=== PATIENT | male | born 1950 | race Caucasian/White ===

== ENCOUNTER 2023-11-23 14:45 | Emergency (ER) | payer OTHER, SELFPAY ==
[2023-11-23 14:49] VITALS: BP 155/82; PULSE 79; RESP 16; TEMP 36.8; O2SAT 99; BMI 25.0
--- NOTE | 2023-11-23 14:55 | DI.RAD.S_ITS ---
PROCEDURE: XR CHEST 1V INDICATIONS: chest pain TECHNIQUE: One view of the chest was acquired. COMPARISON: [facility], CR, XR CHEST 2 VIEWS, 03/07/2022, 14:49. FINDINGS: Surgical changes and devices: None. Lungs and pleura: Lungs are clear. No pleural effusions or pneumothorax. Mediastinum: Mediastinal contours appear normal. Heart size is normal. Bones and chest wall: No suspicious bony lesions. Levocurvature of the thoracic spine. Overlying soft tissues appear unremarkable. IMPRESSION: No acute cardiopulmonary abnormality is seen. Dictated by: Jaron Patiño M.D. on 11/23/2023 at 16:18 Approved by: Jaron Patiño M.D. on 11/23/2023 at 16:19
[2023-11-23 15:27] LABS: Add Manual Diff / Slide Review NO; Basophils Absolute Auto 0 /uL (0-100); Basophils Percent Auto 0.3 % (0-2); Eosinophils Absolute Auto 100 /uL (0-450); Hematocrit 43.5 % (41-53); Hemoglobin 14.9 g/dL (13.5-17.5); Lymphocytes Absolute Auto 1800 /uL (1100-4500); Lymphocytes Percent Auto 24.8 % (25-40); Mean Corpuscular HGB Conc 34.3 % (30-36); Mean Corpuscular Hemoglobin 33.4 PG (26-34); Mean Corpuscular Volume 97.5 fL (80-100); Monocytes Absolute Auto 1100 /uL (0-900); Monocytes Percent Auto 15.2 % (3-14); Neutrophils Absolute Auto 4200 /uL (1500-7000); Neutrophils Percent Auto 58.7 % (50-75); Platelet Count 231 X10^3/uL (150-400); Red Blood Cell Count 4.46 X10^6/uL (4.5-5.9); White Blood Cell Count 7.1 X10^3/uL (4.5-11.0)
[2023-11-23 15:44] LABS: INR 0.9 (0.9-1.3); Prothrombin Time 10.5 SECONDS (9.4-12.5)
[2023-11-23 15:46] LABS: PTT Partial Thromboplastin Tim 38 SECONDS (25.1-36.5)
[2023-11-23] MEDS: ASPIRIN 81 MG CHEW TAB 324 MG PO (15:51)
[2023-11-23 15:53] LABS: Alanine Aminotransferase 38 IU/L (<50); Albumin 4.6 g/dL (3.5-5.0); Albumin Globulin Ratio 1.8 (1.0-2.8); Alkaline Phosphatase 62 U/L (38-126); Aspartate Aminotransferase 47 IU/L (17-59); BUN Creatinine Ratio 16.7 (6-22); Bilirubin Total 0.6 mg/dL (0.2-1.3); Blood Urea Nitrogen 14 mg/dL (9-20); Calcium 9.7 mg/dL (8.4-10.2); Carbon Dioxide 29 mmol/L (22-32); Chloride 105 mmol/L (98-107); Creatine Kinase 354 U/L (55-170); Estimated Glomerular Filt Rate > 60 mL/min (>60); Globulin 2.6 g/dL (1.7-4.1); Glucose 121 mg/dL (80-110); HEMOLYSIS 25 (0-50); Lipase 503 U/L (23-300); Magnesium 2.1 mg/dL (1.6-2.3); Potassium 3.8 mmol/L (3.4-5.1); Sodium 138 mmol/L (137-145); Total Protein 7.2 g/dL (6.3-8.2)
[2023-11-23 16:04] LABS: Troponin I < 0.012 ng/mL (0.01-0.034)
[2023-11-23 17:30] VITALS: BP 135/72; PULSE 66; RESP 14; O2SAT 99
--- NOTE | 2023-11-23 18:09 | ED.CHESTPAIN ---
HPI - Chest Pain General Chief Complaint: Chest Pain Stated Complaint: intermittent chest pain Time Seen by Provider: 11/23/23 18:08 Source: patient and family Mode of arrival: Ambulatory History of Present Illness HPI narrative: 73-year-old gentleman with a history of hyperlipidemia, father who did of cardiovascular disease 57 with multiple lifestyle risk factors that is the patient has actively avoided. Hiren notes that he will regularly hike for 4-5 hours up and down mountains without any difficulties today. Today he and his or hiking up [place], relatively easy hike for them when he developed acute right-sided chest pain that he describes it as sharp and stabbing lasting a few seconds and recurring every few minutes. He was not short of breath, diaphoretic, dizzy or complaining of palpitations. Deep breathing and positioning did not make any difference to the pain. He and his made it to the end of their hike and while they were sitting and having some coffee continued to have these sharp stabbing intermittent episodes of pain in the right chest for approximately 45 minutes. Recently has not had fevers, cough, chills, lower extremity edema, nausea, vomiting, diarrhea. Related Data Allergies Allergy/AdvReac Type Severity Reaction Status Date / Time No Known Drug Allergies Allergy Verified 11/23/23 14:54 Review of Systems Review of Systems Narrative: Pertinent positive and negative findings as per HPI Patient History Medical History (Updated 11/23/23 @ 19:01 by Vida Calle MD) Hyperlipidemia Social History Smoking Status: Never smoker Smoking Status: Never smoker Substance Use Type: does not use Exam Initial Vital Signs Initial Vital Signs: Vital Signs Temperature 98.3 F 11/23/23 14:49 Pulse Rate 79 11/23/23 14:49 Respiratory Rate 16 11/23/23 14:49 Blood Pressure 155/82 H 11/23/23 14:49 Pulse Oximetry 99 11/23/23 14:49 Oxygen Delivery Method Room Air 11/23/23 14:49 General: Healthy appearing, in no acute distress. Able to give a complete and coherent history. Well-nourished well-developed HEENT: Moist mucous membranes, normal sclera with reactive pupils, Neck: No JVD, supple Respiratory: Lungs are clear to auscultation, no wheezing no rales no rhonchi. Full and symmetrical air movement Cardiac: Regular rate and rhythm no murmurs no bruits Abdomen: Soft, nontender, good bowel tones, no flank pain Skin: Warm and dry, no rashes Neurologic: Grossly neurologically intact with no obvious asymmetries or abnormalities Extremities: No trauma, well perfused Psych: Cooperative, appropriate insight and affect Course Orders Ordered: ED Orders 11/23/23 14:55 XR chest 1V Stat EKG-12 Lead Stat 11/23/23 15:15 Complete Blood Count AUTO DIFF Stat Comprehensive Metabolic Panel Stat Lipase Stat Magnesium Stat PTT Partial Thromboplastin Paddy Stat Prothrombin Time INR Stat Troponin & CK Cardiac Panel Stat 11/23/23 18:03 Trop I [Troponin I] Stat Discontinued Medications Aspirin (Aspirin 81 Mg Chew Tab) 324 mg PO NOW ONE Stop: 11/23/23 14:56 Last Admin: 11/23/23 15:51 Dose: 324 mg Documented By: SB Vital Signs Vital signs: Vital Signs - 8 hr 11/23/23 14:49 11/23/23 17:30 Temperature 98.3 F Pulse Rate 79 66 Respiratory Rate 16 14 Blood Pressure 155/82 H 135/72 Pulse Oximetry 99 99 Oxygen Delivery Method Room Air Room Air MDM - Chest Pain Lab Data 11/23/23 15:15 11/23/23 15:15 Labs: Lab Results 11/23/23 Range/Units 15:15 WBC 7.1 (4.5-11.0) X10^3/uL RBC 4.46 L (4.5-5.9) X10^6/uL Hgb 14.9 (13.5-17.5) g/dL Hct 43.5 (41-53) % MCV 97.5 (80-100) fL MCH 33.4 (26-34) PG MCHC 34.3 (30-36) % RDW 13.0 (11.6-14.8) % Plt Count 231 (150-400) X10^3/uL Neut % (Auto) 58.7 (50-75) % Lymph % (Auto) 24.8 L (25-40) % [place] % (Auto) 15.2 H (3-14) % Eos % (Auto) 1.0 L (2-4) % Baso % (Auto) 0.3 (0-2) % Neut # (Auto) 4200 (2501-2547) /uL Lymph # (Auto) 1800 (1575-0370) /uL [place]ley # (Auto) 1100 H (0-900) /uL Eos # (Auto) 100 (0-450) /uL Baso # (Auto) 0 (0-100) /uL PT 10.5 (9.4-12.5) SECONDS INR 0.9 (0.9-1.3) APTT 38 H (25.1-36.5) SECONDS Sodium 138 (137-145) mmol/L Potassium 3.8 (3.4-5.1) mmol/L Chloride 105 (98-107) mmol/L Carbon Dioxide 29 (22-32) mmol/L BUN 14 (9-20) mg/dL Creatinine 0.84 (0.66-1.25) mg/dL Estimated GFR > 60 (>60) mL/min BUN/Creatinine Ratio 16.7 (6-22) Glucose 121 H (80-110) mg/dL Calcium 9.7 (8.4-10.2) mg/dL Magnesium 2.1 (1.6-2.3) mg/dL Total Bilirubin 0.6 (0.2-1.3) mg/dL AST 47 (17-59) IU/L ALT 38 (<50) IU/L Alkaline Phosphatase 62 (38-126) U/L Total Creatine Kinase 354 H (55-170) U/L Troponin I < 0.012 (0.01-0.034) ng/mL Total Protein 7.2 (6.3-8.2) g/dL Albumin 4.6 (3.5-5.0) g/dL Globulin 2.6 (1.7-4.1) g/dL Albumin/Globulin Ratio 1.8 (1.0-2.8) Lipase 503 H (23-300) U/L MDM Narrative Medical decision making narrative: CC: Right-sided intermittent episodes of chest pain with hiking Complicating co-morbidities: Mild hyperlipidemia Data collected from: patient Social determinants of health that may influence the patients condition: Very active patient, regularly hikes 4-5 hours a day a pills Differential considered: Pleurisy, muscle spasm, acute coronary syndrome Exam documented above, pertinent findings include: Exam is entirely benign, there is no reproducible chest pain Lab Test results independently reviewed as above. Pertinent findings: CBC is unremarkable Chemistries are reassuring 1st and 2nd troponin are within normal limits Independently reviewed EKG: Sinus rhythm at a rate of 78, occasional PVC, LVH with developing bundle branch block Imaging studies independently reviewed: Chest x-ray is unremarkable Treatments: Patient was given aspirin Discussion: 73-year-old gentleman with minimal medical issues experiencing some between 45 minutes an hour and a half of right-sided sharp stabbing intermittent chest pain that was not associated with diaphoresis did not change at rest or with position or deep breathing. Has not entirely resolved with his emergency room visit. Repeat troponin is unremarkable, his heart score is 3 which gives him a low risk 1-1.7% risk of Mace in the next 30 days. He is numbers reviewed with him. This point I think he is safe for discharge home with info most likely explanation for his pain is more musculoskeletal than anything that would require additional workup, imaging or hospitalization. We will ask him to follow up with his primary care physician and I believe a stress test of some type as an outpatient for cardiac risk stratification would be prudent. Questions are answered he is safe for discharge Discharge Plan Departure Patient Disposition: Home Clinical Impression: Atypical chest pain Instructions: DI for Atypical Chest Pain Activity Restrictions/Additional Instructions: Thank you for coming in today, I believe an emergency room visit was entirely appropriate with your symptoms Fortunately, your workup is very benign. I am seeing no evidence of infection, collapsed lungs, abnormalities on chest x-ray, no suggestion of acute heart attack or heart attack like syndrome. We may never white figure out what it is but the most likely explanation is more consistent with a musculoskeletal issue than something that would require hospitalization or further workup tonight I do believe that reviewing your symptoms with your primary care doctor would be appropriate. Undergoing an outpatient cardiac stress test for further risk stratification would be a reasonable thing to consider. If you find that you are getting worse or develop any new symptoms, please feel free to return to the emergency department for further evaluation. Referrals: William Rao ARNP [Primary Care Provider] - Stand Alone Forms: Patient Portal/API
[2023-11-23 18:46] LABS: Troponin I < 0.012 ng/mL (0.01-0.034)
[2023-11-23 19:23] VITALS: BP 136/77; PULSE 74; RESP 28; O2SAT 97
== END 2023-11-23 19:24 | disposition home or self-care (01) ==
PROVIDERS: Emergency Medicine; Emergency Provider Emergency Medicine; Family Provider Registered Nurse; PCP Registered Nurse
DX: R07.89 Other chest pain (principal)
CPT/HCPCS: 36415; 71045; 80053; 82550; 83690; 83735; 84484; 85025; 85610; 85730; 93005; 93010; 99284